=== PATIENT | female | born 1950 | race Caucasian/White ===

== ENCOUNTER 2019-10-30 21:00 | Outpatient (REF) | payer MEDICARE, SELFPAY ==
[2019-10-30 21:50] LABS: ALT 37 U/L (14-59); AST 23 U/L (15-37); Alkaline Phosphatase 78 U/L (46-116); Bilirubin, Total 0.3 mg/dL (0.2-1.0); TSH (W/Ref FT4) 0.91 uIU/mL (0.36-3.74); Total Protein 7.1 g/dL (6.4-8.2)
[2019-10-30 22:04] LABS: Bilirubin, Direct 0.14 mg/dL (0.00-0.20)
== END 2019-10-30 21:20 ==
LOC: NCHCN 21:00
PROVIDERS: PCP Nurse Practitioner Family; Visit Provider Nurse Practitioner Family
DX: R19.7 Diarrhea, unspecified (principal)
CPT/HCPCS: 80076; 84443

== ENCOUNTER 2020-11-03 14:55 | Outpatient (REF) | payer MEDICARE, SELFPAY ==
[2020-11-03 15:07] LABS: Abs Immature Grans 0.03 10^3/uL (0.0-0.06); Absolute Basophil Count 0.08 10^3/uL (0.0-0.2); Absolute Eosinophil Count 0.25 10^3/uL (0.0-0.7); Absolute Lymphocyte Count 1.64 10^3/uL (1.2-3.4); Absolute Monocyte Count 0.91 10^3/uL (0.1-0.8); Absolute Neutrophil Count 6.56 10^3/uL (1.2-6.7); Basophils % 0.8; Eosinophils % 2.6; HCT 36.2 % (36.0-46.0); HGB 11.5 g/dL (11.2-15.7); Immature Grans % 0.3; Lymphocytes % 17.3; MCH 28.8 pg (27.0-33.0); MCHC 31.8 % (32.0-36.0); MCV 90.5 fL (80-95); MPV 10.2 fL (8.0-11.0); Monocytes % 9.6; Neutrophils % 69.4; Nucleated RBC 0 %; Platelet Count 449 10^3/uL (130-400); RDW 12.9 % (11.7-14.6); RDW-SD 42.5 fL; WBC 9.47 10^3/uL (4.4-10.8)
[2020-11-03 15:25] LABS: ALT 19 U/L (14-59); AST 18 U/L (15-37); Albumin 3.5 g/dL (3.4-5.0); Alkaline Phosphatase 87 U/L (46-116); Anion Gap 9.3 mmol/L (3-11); BUN 14 mg/dL (7-18); Bilirubin, Total 0.5 mg/dL (0.2-1.0); CO2 28.7 mmol/L (21.0-32.0); CREATININE 0.62 mg/dL (0.55-1.02); Calcium 9.7 mg/dL (8.5-10.1); Chloride 101 mmol/L (98-107); Glucose 119 mg/dL (74-106); NT-proBNP 102 pg/mL (<300); Potassium 4.2 mmol/L (3.5-5.1); Sodium 139 mmol/L (136-145); TSH (W/Ref FT4) 0.78 uIU/mL (0.36-3.74); Total Protein 7.3 g/dL (6.4-8.2)
[2020-11-03 15:41] LABS: ESR 67 mm/hr (0-30)
[2020-11-03 23:24] LABS: Rheumatoid Factor <8.6 IU/mL (<12.0)
[2020-11-04 11:07] LABS: Cyclic Citrullinated Peptide <2.5 U/mL (<5.0)
[2020-11-04 11:45] LABS: Lyme Ab w Rflx to Lyme Confirm Negative (Negative)
[2020-11-04 14:54] LABS: ANA Interpretation Negative (Negative)
[2020-11-05 00:30] LABS: Anaplasma phagocytophilum Negative (Negative); B. miyamotoi PCR Negative (Negative); Babesia divergens/MO-1 Negative (Negative); Babesia duncani Negative (Negative); Babesia microti Negative (Negative); Ehrlichia chaffeensis Negative (Negative); Ehrlichia ewingii/canis Negative (Negative); Ehrlichia muris eauclairensis Negative (Negative)
== END 2020-11-03 15:15 ==
LOC: NCHCN 14:55
PROVIDERS: PCP Nurse Practitioner Family; Visit Provider Physician Assistant
DX: R60.0 Localized edema (principal); R06.02 Shortness of breath; M25.59 Pain in other specified joint
CPT/HCPCS: 80053; 85652; 86200; 87798; 83880; 84443; 85025; 86038; 86140; 86431; 86618

== ENCOUNTER 2021-03-16 16:12 | Outpatient (REF) | payer MEDICARE, SELFPAY ==
[2021-03-16 19:14] LABS: COMMENT (LAB VIEW ONLY) 100.87 mg/dL; Microalb ug/mg Crea 8.7 ug/mg Cr
== END 2021-03-16 16:13 | disposition home or self-care (01) ==
LOC: NCHCN 16:12
PROVIDERS: PCP Nurse Practitioner Family; Visit Provider Physician Assistant
DX: E11.9 Type 2 diabetes mellitus without complications (principal)
CPT/HCPCS: 82043; 82570

== ENCOUNTER 2021-05-24 16:19 | Outpatient (REF) | payer MEDICARE, SELFPAY ==
[2021-05-24 18:57] LABS: HCT 38.2 % (36.0-46.0); MCH 30.5 pg (27.0-33.0); MCHC 31.4 % (32.0-36.0); MPV 10.2 fL (8.0-11.0); Platelet Count 306 10^3/uL (130-400); RBC 3.94 10^6/uL (3.93-5.22); RDW 16.4 % (11.7-14.6); RDW-SD 58.6 fL; WBC 11.54 10^3/uL (4.4-10.8)
[2021-05-24 19:07] LABS: ESR 26 mm/hr (0-30)
[2021-05-24 19:34] LABS: C-Reactive Protein 1.07 mg/dL (0.0-0.3)
== END 2021-05-24 16:20 | disposition home or self-care (01) ==
LOC: NCHCN 16:19
PROVIDERS: PCP Nurse Practitioner Family; Visit Provider Internal Medicine
DX: D11.9 Benign neoplasm of major salivary gland, unspecified (principal); M31.6 Other giant cell arteritis; M13.80 Other specified arthritis, unspecified site
CPT/HCPCS: 85027; 85652; 86140

== ENCOUNTER 2021-07-30 12:22 | Outpatient (REF) | payer MEDICARE, SELFPAY ==
[2021-07-30 18:38] LABS: Abs Immature Grans 0.24 10^3/uL (0.0-0.06); Absolute Basophil Count 0.04 10^3/uL (0.0-0.2); Absolute Eosinophil Count 0.04 10^3/uL (0.0-0.7); Absolute Lymphocyte Count 1.54 10^3/uL (1.2-3.4); Absolute Monocyte Count 0.69 10^3/uL (0.1-0.8); Basophils % 0.3; Eosinophils % 0.3; HCT 37.9 % (36.0-46.0); HGB 11.8 g/dL (11.2-15.7); Immature Grans % 1.9; Lymphocytes % 12.5; MCH 30.2 pg (27.0-33.0); MCHC 31.1 % (32.0-36.0); MCV 96.9 fL (80-95); Monocytes % 5.6; Neutrophils % 79.4; Nucleated RBC 0 %; RBC 3.91 10^6/uL (3.93-5.22); RDW 13.2 % (11.7-14.6); RDW-SD 46.6 fL; WBC 12.32 10^3/uL (4.4-10.8)
[2021-07-30 18:46] LABS: Absolute Neutrophil Count 9.78 10^3/uL (1.2-6.7)
[2021-07-30 18:58] LABS: Diff Comment PLT Morph Reviewed; RBC Morphology Normal
[2021-07-30 19:07] LABS: ALT 78 U/L (14-59); AST 43 U/L (15-37); Albumin 3.4 g/dL (3.4-5.0); Alkaline Phosphatase 71 U/L (46-116); Anion Gap 3.5 mmol/L (3-11); BUN 17 mg/dL (7-18); Bilirubin, Total 0.6 mg/dL (0.2-1.0); CO2 35.5 mmol/L (21.0-32.0); CREATININE 0.7 mg/dL (0.55-1.02); Calcium 9.6 mg/dL (8.5-10.1); Chloride 100 mmol/L (98-107); Glucose 135 mg/dL (74-106); Potassium 4.1 mmol/L (3.5-5.1); Sodium 139 mmol/L (136-145); Total Protein 6.9 g/dL (6.4-8.2)
== END 2021-07-30 12:23 | disposition home or self-care (01) ==
LOC: NCHCN 12:22
PROVIDERS: PCP Nurse Practitioner Family; Visit Provider Physician Assistant
DX: R06.02 Shortness of breath (principal); R09.02 Hypoxemia; R60.0 Localized edema
CPT/HCPCS: 80053; 85025

== ENCOUNTER 2022-11-07 13:38 | Outpatient (REF) | payer MEDICARE, SELFPAY ==
--- OUTSIDE RECORDS SUMMARY | 2022-11-07 13:44 | XMS_ITS | Continuity of Care Document ---
:1950 Author Organization [facility] Address [address] [place] [address] Care Team Providers Name Role Phone Marika Sims Primary Care Physician Encounter [id number] Date(s): 09/22/22 - 09/22/[address] [id number] Discharge Disposition: Home or Self Care Attending Physician: John Villela MD Admitting Physician: John Villela MD Referring Physician: John Villela MD Allergies, Adverse Reactions, Alerts Substance Reaction Severity Status CAT DANDER Unknown Active hydroxychloroquine Unknown Active iodinated radiocontrast dyes Unknown Act tammi Immunizations Given and Recorded Vaccine Date Status Refusal Reason SARS-CoV-2 (COVID-19) mRNA-1273 vaccine 01/11/21 Recorded SARS-CoV-2 (COVID-19) mRNA-1273 vaccine 12/14/20 Recorded influenza virus vaccine, inactivated 08/08/12 Recorded influenza virus vaccine, inactivated 07/23/10 Recorded tetanus-diphth toxoids (Td) adult/adol 10/23/03 Recorded Results Laboratory List Name Date C-Reactive Protein High Sensitivity 09/22/22 CBC w/o Diff 09/22/22 Sedimentation Rate (ESR) 09/22/22 Most recent to oldest [Reference Range]: 1 WBC [5.0-10.0 x10^3/mcL] 7.9 x10^3/mcL (09/22/22 10:41 AM) RBC [4.1-5.3 x10^6/mcL] 3.9 x10^6/mcL *LOW* (09/22/22 10:41 AM) MCV [80.0-96.0] 98.2 *HI* (09/22/22 10:41 AM) MCHC [31.0-35.0 g/dL] 31.9 g/dL (09/22/22 10:41 AM) Hct [37.0-47.0 %] 38.5 % (09/22/22 10:41 AM) MCH [26.0-32.0 pg] 31.4 pg (09/22/22 10:41 AM) Hgb [12.0-16.0 g/dL] 12.3 g/dL (09/22/22 10:41 AM) Platelets [130-450 x10^3/mcL] 292 x10^3/mcL (09/22/22 10:41 AM) RDW-CV [11.7-17.0 %] 12.9 % (09/22/22 10:41 AM) CRP High Sens [0.00-3.00 mg/L] 4.71 mg/L *HI* (09/22/22 10:41 AM) ESR, Westergren [0-30 mm/hr] 19 mm/hr (09/22/22 10:41 AM) Social History Social History Type Response Sex Female Patient Care team information PersonnelName: Marika Sims PA-C Address: Address: [address] [address]- [place]
[2022-11-07 19:30] LABS: Abs Immature Grans 0.02 10^3/uL (0.0-0.06); Absolute Basophil Count 0.09 10^3/uL (0.0-0.2); Absolute Eosinophil Count 0.13 10^3/uL (0.0-0.7); Absolute Lymphocyte Count 1.89 10^3/uL (1.2-3.4); Absolute Monocyte Count 0.83 10^3/uL (0.1-0.8); Basophils % 1.1; Eosinophils % 1.6; HCT 39.2 % (36.0-46.0); HGB 12.4 g/dL (11.2-15.7); Immature Grans % 0.3; Lymphocytes % 23.7; MCH 30.6 pg (27.0-33.0); MCHC 31.6 % (32.0-36.0); MCV 97 fL (80-95); MPV 10.5 fL (8.0-11.0); Monocytes % 10.4; Neutrophils % 62.9; Platelet Count 337 10^3/uL (130-400); RBC 4.05 10^6/uL (3.93-5.22); RDW 12.5 % (11.7-14.6); RDW-SD 44.5 fL; WBC 7.96 10^3/uL (4.4-10.8)
[2022-11-07 19:32] LABS: ESR 46 mm/hr (0-30)
[2022-11-07 19:42] LABS: C-Reactive Protein 1.77 mg/dL (0.0-0.3); Uric Acid 4.6 mg/dL (2.6-6.0)
== END 2022-11-07 13:39 | disposition home or self-care (01) ==
LOC: NCHCN 13:38
PROVIDERS: PCP Nurse Practitioner Family; Visit Provider Nurse Practitioner Family
DX: M79.671 Pain in right foot (principal)
CPT/HCPCS: 85652; 84550; 84590; 85025; 86140

== ENCOUNTER 2023-02-16 13:35 | Outpatient (REF) | payer MEDICARE, SELFPAY ==
[2023-02-16 18:50] LABS: Hemoglobin A1C 5.7 % (<5.7)
[2023-02-16 19:00] LABS: ALT 31 U/L (14-59); AST 23 U/L (15-37); Albumin 3.7 g/dL (3.4-5.0); Alkaline Phosphatase 79 U/L (46-116); Anion Gap 9.2 mmol/L (3-11); BUN 18 mg/dL (7-18); Bilirubin, Total 0.4 mg/dL (0.2-1.0); CO2 26.8 mmol/L (21.0-32.0); CREATININE 0.7 mg/dL (0.55-1.02); Calcium 9.9 mg/dL (8.5-10.1); Chloride 104 mmol/L (98-107); Glucose 107 mg/dL (74-106); LDL CHOLESTEROL 95 mg/dL (<100); Sodium 140 mmol/L (136-145); Total Protein 7.3 g/dL (6.4-8.2)
== END 2023-02-16 13:36 | disposition home or self-care (01) ==
LOC: NCHCN 13:35
PROVIDERS: PCP Nurse Practitioner Family; Visit Provider Physician Assistant
DX: E11.9 Type 2 diabetes mellitus without complications (principal); I10 Essential (primary) hypertension
CPT/HCPCS: 80053; 83721; 83036

== ENCOUNTER 2024-09-30 11:57 | Outpatient (REF) | payer MEDICARE, SELFPAY ==
[2024-09-30 19:36] LABS: Abs Immature Grans 0.01 10^3/uL (0.0-0.06); Absolute Basophil Count 0.07 10^3/uL (0.0-0.2); Absolute Eosinophil Count 0.25 10^3/uL (0.0-0.7); Absolute Lymphocyte Count 1.83 10^3/uL (1.2-3.4); Absolute Monocyte Count 0.65 10^3/uL (0.1-0.8); Absolute Neutrophil Count 3.55 10^3/uL (1.2-6.7); Basophils % 1.1 %; Eosinophils % 3.9 %; HCT 36.8 % (36.0-46.0); HGB 11.7 g/dL (11.2-15.7); Immature Grans % 0.2 %; Lymphocytes % 28.8 %; MCHC 31.8 % (32.0-36.0); MCV 91 fL (80-95); MPV 11.1 fL (8.0-11.0); Monocytes % 10.2 %; Neutrophils % 55.8 %; Platelet Count 267 10^3/uL (130-400); RBC 4.04 10^6/uL (3.93-5.22); RDW 13.9 % (11.7-14.6); WBC 6.36 10^3/uL (4.4-10.8)
[2024-09-30 20:13] LABS: ALT 19 U/L (14-59); AST 22 U/L (15-37); Albumin 4.1 g/dL (3.4-5.0); Alkaline Phosphatase 75 U/L (46-116); Anion Gap 7.5 mmol/L (3-11); BUN 17 mg/dL (7-18); Bilirubin, Total 0.44 mg/dL (0.2-1.0); CO2 29.5 mmol/L (21.0-32.0); CREATININE 0.8 mg/dL (0.55-1.02); Calcium 10.4 mg/dL (8.5-10.1); Chloride 105 mmol/L (98-107); Estimated GFR 76.31 (mL/min/1.73m2); Glucose 103 mg/dL (74-106); Sodium 142 mmol/L (136-145); Total Protein 7.6 g/dL (6.4-8.2)
[2024-09-30 20:17] LABS: C-Reactive Protein < 0.50 mg/dL (<or=0.5)
== END 2024-09-30 11:58 | disposition home or self-care (01) ==
LOC: NCHCN 11:57
PROVIDERS: PCP Nurse Practitioner Family; Visit Provider Internal Medicine
DX: I26.99 Other pulmonary embolism without acute cor pulmonale (principal); M43.02 Spondylolysis, cervical region
CPT/HCPCS: 80053; 85025; 86140

== ENCOUNTER 2025-03-31 12:59 | Outpatient (REF) | payer MEDICARE, SELFPAY ==
[2025-03-31 19:29] LABS: TSH 0.98 uIU/mL (0.36-3.74)
== END 2025-03-31 13:00 | disposition home or self-care (01) ==
LOC: NCHCN 12:59
PROVIDERS: PCP Nurse Practitioner Family; Visit Provider Internal Medicine
DX: E21.3 Hyperparathyroidism, unspecified (principal)
CPT/HCPCS: 84443